=== PATIENT | female | born 1965 | race Caucasian/White ===

== ENCOUNTER 2024-07-20 09:22 | Outpatient (CLI) | payer OTHER | END 2024-07-20 09:23 | disposition home or self-care (01) | LOC: CSHCP 09:22 | PROVIDERS: ATTEND Internal Medicine | DX: J44.9 Chronic obstructive pulmonary disease, unspecified (principal); E04.1 Nontoxic single thyroid nodule | CPT/HCPCS: 76536; 94060; 94618; 94664; 94726; 94729 ==

== ENCOUNTER 2024-08-31 08:36 | Outpatient (CLI) | payer OTHER | END 2024-08-31 08:37 | disposition home or self-care (01) | LOC: CSHSLEEP 08:36 | PROVIDERS: ATTEND Internal Medicine | DX: G47.33 Obstructive sleep apnea (adult) (pediatric) (principal); R53.83 Other fatigue; R06.83 Snoring; G47.61 Periodic limb movement disorder | CPT/HCPCS: 95811 ==